=== PATIENT | female | born 1935 | race Caucasian/White ===

== ENCOUNTER 2019-08-27 15:31 | Outpatient (CLI) | payer MEDICARE ==
--- NOTE | 2019-08-27 15:53 | RAD ---
EXAM: XR Knee Lt 2 View PROVIDED CLINICAL HISTORY: Pain COMPARISON: None FINDINGS: There is no evidence for fracture or other acute osseous abnormality. There is moderate knee joint ca psular distention. Medial femorotibial joint space narrowing is demonstrated. Joint spaces appear otherwise preserved. There is mild genu varum. Alignment appears otherwise anatomic. IMPRESSION: Left knee degenerative change with associated joint effusion.
== END 2019-08-27 15:32 | disposition home or self-care (01) ==
LOC: BICRAD 15:31
PROVIDERS: ATTEND Family Medicine
DX: M25.562 Pain in left knee (principal); R30.0 Dysuria; M17.12 Unilateral primary osteoarthritis, left knee; M25.462 Effusion, left knee
CPT/HCPCS: 81015; 87077; 87086; 87186

== ENCOUNTER 2019-09-04 14:29 | Outpatient (CLI) | payer MEDICARE ==
--- NOTE | 2019-09-04 15:06 | BD ---
EXAM: DEXA bone density examination HISTORY: 84-year-old postmenopausal female for screening COMPARISON: None FINDINGS: L1--bone mineral density 0.920 g/sq cm; T score -0.6 L2--bone mineral density 1.017 g/sq cm; T score -0.1 L3--bone mineral density 1.168 g/sq cm; T score 0.8 L4--bone mineral density 1.132 g/sq cm; T score 0.6 Total L1-L4--bone mineral density 1.061 g/sq cm; T score 0.1 Left femoral neck--bone mineral density0.622; T score -2.0 Total proximal left femur--bone mineral density 0.785; T score -1.3 IMPRESSION: Osteopenia
== END 2019-09-04 14:30 | disposition home or self-care (01) ==
LOC: BICMAMMO 14:29
PROVIDERS: ATTEND Family Medicine
DX: M81.0 Age-related osteoporosis without current pathological fracture (principal); M85.89 Other specified disorders of bone density and structure, multiple sites
CPT/HCPCS: 77080

== ENCOUNTER 2019-10-11 13:28 | Outpatient (CLI) | payer MEDICARE ==
--- NOTE | 2019-10-11 14:39 | MRI ---
MRI of thebrain with and without contrast: 10/11/2019 COMPARISON:None available HISTORY:Dementia TECHNIQUE: Multiplanar multisequence MR imaging of thebrain with and without contrast Findings:The diffusion weighted imaging demonstrates no evidence for acute infarction. There is a pun ctate focus of blooming artifact within the subcortical white matter of the right occipital lobe suggesting a remote focus of microhemorrhage. The gradient echo imaging otherwise unremarkable. Mild diffuse cerebral volume loss. Multifocal periventricular, deep, and subcortical white matter T2 and FLAIR hyperintensity consistent with mild/moderate small vessel disease. Arterial flow voids at the axial level of the skull base appear grossly unremarkable on the T2-weight ed imaging. Imaged paranasal sinuses/mastoid air cells appear well aerated. Postcontrast imaging demonstrates no abnormal enhancement within the brain parenchyma. IMPRESSION:No acute findings. Incidental findings as above.
== END 2019-10-11 13:29 | disposition home or self-care (01) ==
LOC: SCSMRI 13:28
PROVIDERS: ATTEND Psychiatry & Neurology Neurology
DX: G30.1 Alzheimer's disease with late onset (principal)
CPT/HCPCS: 70553; 82565

== ENCOUNTER 2019-10-15 14:03 | Outpatient (CLI) | payer MEDICARE ==
--- NOTE | 2019-10-15 14:26 | ULT ---
US Renal Bilateral STANDARD: 10/15/2019 12:00 AM CLINICAL HISTORY: Incontinence. STUDY: Renal ultrasound COMPARISON: None. FINDINGS: Right kidney: Echogenicity: Normal. Masses/cysts: None. Hydronephrosis: None. Calcifications: None. Length: 11.2 cm Left kidney: Echogenicity: Normal. Masses/cysts: None. Hydronephrosis: None. Calcifications: None. Length: 11.1 cm Limited visualization of the urinary bladder is unremarkable. IMPRESSION: Unremarkable renal ultrasound
== END 2019-10-15 14:04 | disposition home or self-care (01) ==
LOC: SCSULT 14:03
PROVIDERS: ATTEND Urology
DX: R32 Unspecified urinary incontinence (principal)
CPT/HCPCS: 76770